=== PATIENT | male | born 1960 | race Caucasian/White ===

== ENCOUNTER 2020-03-27 06:21 | Emergency (ER) | payer BC ==
[~2020-03-27] VITALS: Ht 180.3 cm; Wt 77.1 kg
[2020-03-27 07:22] LABS: Eosinophils # (auto) 0 10 ^3/uL (0-0.8); Eosinophils % (auto) 0.1 % (0.0-7.0); Lymphocytes # (auto) 0.4 10 ^3/uL (0.4-5.4); Monocytes # (auto) 0.9 10 ^3/uL (0-1.3)
[2020-03-27 07:24] LABS: Basophils # (auto) 0.1 10 ^3/uL (0-0.2); Basophils % (auto) 0.6 % (0.0-2.0); Hematocrit 19.6 % (41.0-53.0); Lymphocytes % (auto) 2.8 % (10.0-50.0); Mean Corpuscular Hemoglobin 27.5 pg (28.0-32.0); Mean Corpuscular Hgb Conc. 30.3 g/dL (32.0-36.0); Mean Corpuscular Volume 90.6 fL (80.0-100.0); Monocytes % (auto) 5.9 % (0.0-12.0); Neutrophils # (auto) 13.9 10 ^3/uL (1.6-8.6); Neutrophils % (auto) 90.6 % (37.0-80.0); Platelet Count (auto) 183 10^3/uL (140-450); Red Blood Cells 2.16 10^6/uL (4.5-5.90); Red Cell Distribution Width 19.3 % (11.8-14.3); White Blood Cell 15.3 10^3/uL (4.4-10.8)
[2020-03-27 07:29] LABS: INR 1.09 (0.9-1.15)
[2020-03-27] MEDS ORDERED: PIPERACILLIN-TAZOB 3.375GM 100 ML IV ONE (07:30)
[2020-03-27 07:31] LABS: Hemoglobin 5.9 g/dL (13.5-17.5)
[2020-03-27 07:33] LABS: Albumin 2.3 g/dL (3.4-5.0); Calcium 7.7 mg/dL (8.5-10.1); Magnesium 2.4 mg/dL (1.6-2.6); Potassium 4.2 mmol/L (3.5-5.1)
[2020-03-27 07:40] LABS: BUN/Creatinine Ratio 21.4; Bilirubin, Total 1.1 mg/dL (0.2-1.0); Total Protein 5.8 g/dL (6.4-8.2)
[2020-03-27] MEDS ORDERED: SODIUM CHLORIDE 0.9% 1,000 ML IV ONE ×2 (07:45)
[2020-03-27 08:18] LABS: Lactic Acid w/Reflex 3.1 mmol/L (0.4-2.0)
[2020-03-27] MEDS ORDERED: HYDROcodone-ACET 5/325MG TAB PO ONE (11:30)
[2020-03-27 12:18] LABS: Urine WBC None Seen /hpf (0 - 3)
[2020-03-27 12:29] LABS: Urine Bacteria NONE SEEN /hpf (None Seen); Urine Blood Negative /uL (Negative); Urine Specific Gravity 1.009 (1.001-1.035)
[2020-03-27] MEDS ORDERED: levETIRAcetam 500 MG TAB PO ONE ×2 (16:14→16:15)
[2020-03-27] MEDS ORDERED: PHENYLEPHRINE IV 250 ML IV ONE (16:45)
[2020-03-27 20:09] VITALS: BP 98/41
[2020-03-27 20:30] VITALS: BP 94/57
[2020-03-27 20:57] VITALS: BP 94/57
== END 2020-03-27 21:15 | disposition short-term general hospital (02) ==
LOC: ER 06:21 → EDBD 06:21 → ER 21:15
DX: A41.9 Sepsis, unspecified organism (principal); I95.9 Hypotension, unspecified; D64.9 Anemia, unspecified; I50.9 Heart failure, unspecified; R41.82 Altered mental status, unspecified
CPT/HCPCS: 36415; 36430; 70450; 71250; 74176; 80053; 81001; 83605; 83735; 83880; 84443; 84484; 85025; 85610; 85730; 86850; 86900; 86901; 86920; 87040; 93005; 93970; 96365; 96366; 96367; 99291; J1953; J2543; J7060; P9016